=== PATIENT | male | born 1935 | race Caucasian/White ===

== ENCOUNTER 2021-10-19 06:51 | Emergency (ER) | payer MEDICARE, OTHER ==
[2021-10-19] MEDS ORDERED: Aspirin 81 MG Tab.Chew PO ONE (06:52)
[2021-10-19] MEDS ORDERED: Alum Hydro/Mag Hydro/Simeth XS 15 ML, Lidocaine 2% 5 ML PO ONE ×2 (07:19)
[2021-10-19] MEDS ORDERED: Famotidine 20 MG/2 ML SDV IVPUSH ONE (07:19)
[2021-10-19 07:28] LABS: BLOOD UREA NITROGEN,BUN 16 mg/dL (7.0-18.0); CARBON DIOXIDE,CO2 24.5 mmol/L (21.0-32.0); CHLORIDE,CL 100 mmol/L (98-107); GLUCOSE RANDOM 259 mg/dL (74-106); POTASSIUM,K 4.6 mmol/L (3.5-5.1); SODIUM,NA 133 mmol/L (136-148)
[2021-10-19 07:29] LABS: ESTIMATED GFR > 60.0 ml/min
[2021-10-19] MEDS ORDERED: Ondansetron 4 MG/2 ML SDV IVPUSH ONE (07:45)
[2021-10-19] MEDS ORDERED: Sodium Chloride 0.9% 500 ML IV ONE (07:52)
[2021-10-19] MEDS ORDERED: Morphine 4 MG/ML VIAL IVPUSH ONE (08:07)
[2021-10-19] MEDS ORDERED: Iopamidol 755 MG/ML 500 ML Multipack Bottle IVPUSH STA (10:47)
[2021-10-19] MEDS ORDERED: Morphine 2 MG/ML SYRINGE IVPUSH ONE (10:47)
[2021-10-19 11:06] VITALS: BP 162/81
[2021-10-19 12:13] VITALS: PULSE 71
== END 2021-10-19 11:26 | disposition home or self-care (01) ==
LOC: MW.ED 06:51
DX: K29.50 Unspecified chronic gastritis without bleeding (principal); R93.2 Abnormal findings on diagnostic imaging of liver and biliary tract; E11.9 Type 2 diabetes mellitus without complications; I10 Essential (primary) hypertension; I25.10 Atherosclerotic heart disease of native coronary artery without angina pectoris; E78.00 Pure hypercholesterolemia, unspecified; I25.2 Old myocardial infarction; N40.0 Benign prostatic hyperplasia without lower urinary tract symptoms; Z79.82 Long term (current) use of aspirin; Z79.899 Other long term (current) drug therapy; Z79.84 Long term (current) use of oral hypoglycemic drugs; Z20.822 Contact with and (suspected) exposure to COVID-19
CPT/HCPCS: 36415; 71045; 74177; 80048; 83735; 84484; 85025; 93005; 96361; 96374; 96375; 96376; 99285; A9270; J2270; J2405; J3490; J7030; Q9967; U0002